=== PATIENT | female | born 2000 | race Two or more races ===

== ENCOUNTER 2022-01-08 20:49 | Inpatient (IN) | payer MEDICAID ==
[~2022-01-08] VITALS: Ht 149.9 cm; Wt 77.1 kg
[2022-01-08] MEDS ORDERED: ACETAMINOPHEN 325 MG TAB PO ONE (22:00)
[2022-01-08] MEDS ORDERED: NIFEdipine 10 MG CAP PO PRN ×2 (22:30)
[2022-01-08 22:43] LABS: Basophils # (auto) 0 10 ^3/uL (0-0.2); Basophils % (auto) 0.2 % (0.0-2.0); Eosinophils # (auto) 0.1 10 ^3/uL (0-0.8); Eosinophils % (auto) 0.9 % (0.0-7.0); Lymphocytes # (auto) 3.1 10 ^3/uL (0.4-5.4); Mean Corpuscular Volume 78.6 fL (80.0-100.0); Monocytes # (auto) 0.7 10 ^3/uL (0-1.3); Neutrophils # (auto) 6.1 10 ^3/uL (1.6-8.6); Nucleated Red Blood Cells % 0.1 %
[2022-01-08 22:44] LABS: Hemoglobin 12.5 g/dL (12.2-16.2); Lymphocytes % (auto) 30.9 % (10.0-50.0); Mean Corpuscular Hemoglobin 25.2 pg (28.0-32.0); Mean Corpuscular Hgb Conc. 32.1 g/dL (32.0-36.0); Red Blood Cells 4.96 10^6/uL (4.0-5.20); Red Cell Distribution Width 14.7 % (11.8-14.3)
[2022-01-08 22:48] LABS: Urine Bacteria NONE SEEN /hpf (None Seen); Urine Blood Negative /uL (Negative); Urine Specific Gravity 1.002 (1.001-1.035); Urine WBC 16 /hpf (0 - 5)
[2022-01-08 22:55] LABS: Albumin 2.7 g/dL (3.4-5.0); Calcium 9.4 mg/dL (8.5-10.1); Potassium 4.2 mmol/L (3.5-5.1)
[2022-01-08 22:55] LABS: Protein, Urine 11.7 mg/dL (0.0-11.9)
[2022-01-08 22:58] LABS: BUN/Creatinine Ratio 9.7; Bilirubin, Total 0.2 mg/dL (0.2-1.0); Total Protein 7.3 g/dL (6.4-8.2)
[2022-01-08 23:01] LABS: INR 0.83 (0.9-1.15); Partial Thromboplastin Time 29.8 sec (24.6-33.4)
[2022-01-08 23:33] LABS: Amphetamine Screen, Urine NEGATIVE (NEGATIVE); Barbiturate Scree,Urine NEGATIVE (NEGATIVE); Benzodiazephine Screen, Urine NEGATIVE (NEGATIVE); Cannabinoid Screen, Urine NEGATIVE (NEGATIVE); Cocaine Screen, Urine NEGATIVE (NEGATIVE); Opiate Scree,Urine NEGATIVE (NEGATIVE); Phencyclidine Screen, Urine NEGATIVE (NEGATIVE)
[2022-01-09] MEDS ORDERED: PREN27TA7 OR (07:00)
[2022-01-09] MEDS ORDERED: LABETALOL HCL 200 MG TAB PO ONE (07:45)
[2022-01-09] MEDS ORDERED: ceFAZolin 1GM/50ML 50 ML IV ONE (08:15)
[2022-01-09] MEDS ORDERED: LACTATED RINGER'S 1,000 ML IV SCH (08:15)
[2022-01-09] MEDS ORDERED: BETAMETHASONE ACET (30mg/5ml) 5ml Vial 6mg/ml IM ONE (08:15)
[2022-01-09] MEDS ORDERED: hydrALAZINE HCL 20 MG/ML VL ONE (08:18)
[2022-01-09] MEDS ORDERED: hydrALAZINE HCL 20 MG/ML VL IV ONE (08:30)
[2022-01-09] MEDS ORDERED: MAGNESIUM SULFATE 100 ML IV STA (10:20)
[2022-01-09] MEDS ORDERED: MAGNESIUM SULFATE 40MG/ML 1,000 ML IV ONE (10:30)
[2022-01-09] MEDS ORDERED: MAGNESIUM SULFATE 100 ML IV ONE (10:31)
== END 2022-01-09 13:13 | disposition home or self-care (01) | DRG 566 ==
LOC: LDRP 20:49 → OBSVTOIN 01-09 10:27
PROVIDERS: ADMIT Obstetrics & Gynecology; ATTEND Obstetrics & Gynecology
DX: O13.3 Gestational [pregnancy-induced] hypertension without significant proteinuria, third trimester (principal); O60.03 Preterm labor without delivery, third trimester; Z20.822 Contact with and (suspected) exposure to COVID-19; Z3A.36 36 weeks gestation of pregnancy
CPT/HCPCS: 36415; 59025; 76805; 76818; 80053; 80307; 81001; 81002; 82570; 83735; 84156; 84550; 85025; 85610; 85730; 94760; 96360; 96361; 96365; 96366; 96372; G0378; J0690